=== PATIENT | female | born 1985 | race Caucasian/White ===

== ENCOUNTER 2023-08-15 16:45 | Outpatient (CLI) | payer OTHER ==
[2023-08-15 23:08] LABS: CHLAMYDIA TRACHOMATIS DNA NEGATIVE (NEGATIVE); NEISSERIA GONORRHOEAE DNA NEGATIVE (NEGATIVE); TRICHOMONAS VAGINALIS DNA NEGATIVE (NEGATIVE)
== END 2023-08-15 17:00 | disposition home or self-care (01) ==
LOC: LAB.N 16:45
PROVIDERS: ATTEND Physician Assistant Medical
DX: Z11.3 Encounter for screening for infections with a predominantly sexual mode of transmission (principal)
CPT/HCPCS: 86592; 86695; 86696; 86803; 87389; 87491; 87591; 87661